=== PATIENT | female | born 1980 | race Asian ===

== ENCOUNTER → 2017-07-25 | Emergency (ER) | payer BC ==
[~2017-07-25] VITALS: Ht 157.5 cm; Wt 50.0 kg
[2017-07-25 17:14] LABS: HEMATOCRIT 40.2 % (36.0-46.0); MCH 28.4 PG (29.0-34.0); MCHC 33.1 G/DL (30.0-36.0); MCV 85.9 FL (83-99); RBC DIS.WIDTH-CV 12.2 % (11.8-14.6); RBC DIS.WIDTH-SD 38.4 % (39-53); RED BLOOD COUNT 4.68 M/uL (3.80-5.20); WHITE BLOOD COUNT 4.5 K/uL (4.1-10.2)
[2017-07-25 17:28] LABS: CHLORIDE 108 mEq/L (99-109); POTASSIUM 3.9 mEq/L (3.7-5.4); SODIUM 139 mEq/L (136-147)
[2017-07-25 17:30] LABS: GLUCOSE 111 mg/dL (70-99)
[2017-07-25 17:31] LABS: ANION GAP 8 MEQ/L (2-14)
[2017-07-25 17:34] LABS: UREA NITROGEN (BUN) 10 mg/dL (9-23)
[2017-07-25 17:42] LABS: ADD MIUA? YES; BILIRUBIN NEGATIVE; BLOOD MODERATE; COLOR COLORLESS ((YELLOW)); GLUCOSE (STRIP) NEGATIVE; KETONES NEGATIVE; LEUKOCYTES NEGATIVE; NITRITE NEGATIVE; PROTEIN (STRIP) NEGATIVE; SPECIFIC GRAVITY 1.004 (1.000-1.030); UROBILINOGEN 0.2 MG/DL (0.2-1.0)
[2017-07-25 17:43] LABS: QUANTITATIVE HCG 780.9 MIU/ML
[2017-07-25 17:47] LABS: BACTERIA NONE SEEN /HPF; EPITHELIAL CELLS RARE /HPF; MUCUS NONE SEEN /LPF; RED BLOOD CELLS 0-5 /HPF (0-5); UCUL ADDED? NO; WHITE BLOOD CELLS 0-5 /HPF (0-5)
[2017-07-25 17:52] LABS: GFR ESTIMATE (CALCULATED) > 59 mL/min/
[2017-07-25 18:11] LABS: PLATELET CLUMPS PRESENT - PLATELET COUNT APPEARS ADQ.; PLATELET COUNT UNABLE TO REPORT K/uL (156-360)
[2017-07-25 20:03] VITALS: BP 121/78
== END | disposition home or self-care (01) ==
LOC: EME 15:50
DX: O20.9 Hemorrhage in early pregnancy, unspecified (principal); Z3A.01 Less than 8 weeks gestation of pregnancy
CPT/HCPCS: 80048; 81003; 84702; 85027; 86900; 86901; 99281; 99283